=== PATIENT | female | born 1965 | race Caucasian/White ===

== ENCOUNTER 2024-06-19 08:10 | Outpatient (AMB) | payer BC, SELFPAY ==
--- NOTE | 2024-06-19 08:13 | MHC.OFFVIS ---
Vital Signs 06/19/24 08:28 Height 5 ft 2 in Weight 183 lb 13.848 oz BMI 33.6 BP 122/84 Blood Pressure Location Rt brachial Position Sitting Pulse 70 Pulse Source Pulse Oximeter Pulse Oximetry (%) 96 Oxygen Delivery Method Room Air Intake Visit Reasons: Gerd Intake Note: Relevant Flags or Indicators ? Requires Conservation Technician? N Patricia presents in office today for a scheduled initial consult for GERD. CC; Relevant records from [facility] printed and handed to MOTORIZED SQUAD SERGEANT for review. Relevant GI Sx as reported per pt? Nausea ? Vomiting (w/o bleeding, however, typically has a very metallic/bitter taste prior/post). ? Reflux -- Pt does report having respiratory affect w/ reflux. ? Early satiety ? Hx of any recent surgeries? None Pt reports prior hx of colo ~6 years ago. Pt denies any previous hx of EGD. Pt recently started omeprazole 20 mg BID which has been somewhat helpful. Conservation Technician Required: No Allergies No Known Allergies Allergy (Verified 06/19/24 08:13) HPI HPI Gerd: Details: 58-year-old female with no significant past medical history is here today for initial consultation. Patient reports that she has been dealing with epigastric pain, nausea and occasional vomiting. Patient reports that she has been dealing with acid reflux in the past few months. Placed on omeprazole twice a day by PCP and reports that her symptoms are somewhat better, however she continues to have acid reflux. Reports feeling metallic taste in her mouth before and after vomiting. Patient reports dyspepsia without dysphagia or odynophagia. Patient admits to be feeling full quickly. Last colonoscopy normal in 2019. Patient denies any diarrhea or constipation. Denies melena, hematochezia, unintentional weight loss or ribbon like stools. [facility] Medical History (Updated 07/06/24 @ 19:45 by Lashawn Sumner [facility] GERD (gastroesophageal reflux disease) Surgical History H/O colonoscopy (~2019) Family History Maternal Grandmother Ovarian cancer Paternal Grandmother Lung cancer Social History Alcohol intake: never Patient Tobacco Use Status: Former Tobacco user Tobacco use type: Cigarette Review of Systems Const Denies weight gain and Denies weight loss ENT Reports no additional complaints, Denies dysphagia and Denies odynophagia Card Reports no additional complaints Resp Reports no additional complaints GI Denies abdominal pain, Denies belching, Denies melena, Reports bloating, Denies change in bowel habits, Denies dysphagia, Denies excessive flatus, Denies dyspepsia, Reports heartburn, Denies diarrhea, Denies loose stools, Denies nausea, Denies odynophagia and Denies vomiting Reports no additional complaints Musc Reports no additional complaints Neuro Reports no additional complaints Psych Reports no additional complaints Endo Reports no additional complaints Physical Exam Vital Signs: Last Vital Signs Pulse 70 06/19/24 08:28 BP 122/84 06/19/24 08:28 Pulse Ox 96 06/19/24 08:28 Oxygen Delivery Method Room Air 06/19/24 08:28 BMI result Body Mass Index 33.6 Assessment & Plan Assessment & Plan (1) GERD (gastroesophageal reflux disease): Code(s): K21.9 - Gastro-esophageal reflux disease without esophagitis Category: Medical Qualifiers: Esophagitis presence: esophagitis presence not specified Qualified Code(s): K21.9 - Gastro-esophageal reflux disease without esophagitis (2) Postprandial epigastric pain: Code(s): R10.13 - Epigastric pain (3) Nausea & vomiting: Code(s): R11.2 - Nausea with vomiting, unspecified Qualifiers: Vomiting type: unspecified Qualified Code(s): R11.2 - Nausea with vomiting, unspecified (4) Postprandial abdominal bloating: Code(s): R14.0 - Abdominal distension (gaseous) Plan Patient will return for H pylori testing and will hold off taking PPI in the meantime. Will check transglutaminase to rule out celiac, lipase, vitamin B12, folate and vitamin-D level. Will send patient for upper GI series with barium swallow. Patient will be sent for upper endoscopy. Message sent to surgical schedulers to book one. Patient will be started on Nexium after H pylori testing and famotidine at bedtime. Patient can use Pepcid now twice a day until she comes back for H pylori testing. Patient is agreeable to current plan of care and verbalizes understanding of instructions. She was given the opportunity to ask questions and all questions answered. Thank you for allowing me to participate in her care Orders: Orders H Pylori Breath Test 06/19/24 K21.9 - Gastro-esophageal reflux disease without esophagitis Transglutaminase IgA 06/20/24 R10.9 - Unspecified abdominal pain Lipase 06/20/24 R10.9 - Unspecified abdominal pain Transglutaminase Ab IgG 06/20/24 R10.9 - Unspecified abdominal pain TSH reflex Free T4 06/20/24 K59.00 - Constipation, unspecified Vitamin B12 and Folate 06/20/24 R19.7 - Diarrhea, unspecified Vitamin D 25-OH (D2 and D3) 06/20/24 E55.9 - Vitamin D deficiency, unspecified FL upper GI w Ba Swallow 06/19/24 K21.9 - Gastro-esophageal reflux disease without esophagitis Medications: New famotidine (Pepcid) 20 mg PO BID 30 tabs 3RF K29.70 - Gastritis, unspecified, without bleeding esomeprazole magnesium (Nexium) 40 mg PO DAILY 30 caps 5RF K21.9 - Gastro-esophageal reflux disease without esophagitis Coding Level of Care Code New Pt Level 4 (55108) Diagnoses Gastroesophageal reflux disease, unspecified whether esophagitis present K21.9 Esophagitis presence: esophagitis presence not specified Postprandial epigastric pain R10.13 Nausea and vomiting, unspecified vomiting type R11.2 Vomiting type: unspecified Postprandial abdominal bloating R14.0 Time Spent (min) 45 Comment 30 minutes spent with patient and additional 15 minutes spent reviewing her records
[2024-06-19 08:28] VITALS: BP 122/84; PULSE 70; O2SAT 96; BMI 33.6
== END 2024-06-19 09:08 | disposition home or self-care (01) ==
LOC: HO.HGI 08:10
PROVIDERS: PCP Physician Assistant Medical; Visit Provider Nurse Practitioner Family
DX: K21.9 Gastro-esophageal reflux disease without esophagitis (principal); R10.13 Epigastric pain; R11.2 Nausea with vomiting, unspecified; R14.0 Abdominal distension (gaseous)
CPT/HCPCS: 99204

== ENCOUNTER → 2024-06-19 08:10 | Outpatient (BNVA) | payer BC, SELFPAY | PROVIDERS: PCP Physician Assistant Medical; Visit Provider Nurse Practitioner Family ==

== ENCOUNTER 2024-06-20 06:17 | Outpatient (REF) | payer BC, SELFPAY ==
[2024-06-20 07:54] LABS: Lipase 38 U/L (8-78)
[2024-06-20 08:14] LABS: TSH reflex Free T4 1.63 uIU/mL (0.32-4.0)
[2024-06-20 08:28] LABS: Folate 5.1 ng/mL (> or = 4.0); Vitamin B12 508 pg/mL (200-900)
[2024-06-21 19:44] LABS: Transglutaminase Ab IgG <1.0 U/mL; Transglutaminase IgA <1.0 U/mL
[2024-06-25 15:53] LABS: Vitamin D 25-OH, D2 <4 ng/mL; Vitamin D 25-OH, D3 24 ng/mL; Vitamin D 25-OH, Total 24 ng/mL (30-100)
== END 2024-06-20 06:18 | disposition home or self-care (01) ==
LOC: HO.LAB 06:17
PROVIDERS: PCP Physician Assistant Medical; Visit Provider Nurse Practitioner Family
DX: R10.9 Unspecified abdominal pain (principal); K59.00 Constipation, unspecified; R19.7 Diarrhea, unspecified; E55.9 Vitamin D deficiency, unspecified
CPT/HCPCS: 36415; 82306; 82607; 82746; 83690; 84443; 86364

== ENCOUNTER 2024-06-21 06:30 | Day surgery (SDC) | payer BC, SELFPAY ==
--- NOTE | 2024-06-20 10:36 | P.CONAN_ITS ---
Documented by User: Patricia Mcdonald NP 06/20/24 10:36 HPI - Anesthesia Eval Consult details Narrative: 58yo F for Upper Endoscopy [facility] Past Medical History Medical History GERD (gastroesophageal reflux disease) Family History Family History Maternal Grandmother Ovarian cancer Paternal Grandmother Lung cancer Surgical History Surgical History H/O colonoscopy (~2018) Social History Social History Alcohol intake: never Patient Tobacco Use Status: Former Tobacco user Tobacco use type: Cigarette Advance Directives: No Advance Directives Information Provided: Yes Meds Allergies Allergy/AdvReac Type Severity Reaction Status Date / Time No Known Allergies Allergy Verified 06/19/24 08:13 Home Medications ?Medication ?Instructions ?Recorded ?Confirmed ?Last Taken ?Type omeprazole 20 mg capsule,delayed 20 mg PO BID 06/19/24 Unknown History release Assessment and Plan Assessment Anesthesia Assessment: Chart Reviewed Documented by User: Stanislaw Hannah MD 06/21/24 08:14 [facility] Past Medical History Medical History GERD (gastroesophageal reflux disease) Family History Family History Maternal Grandmother Ovarian cancer Paternal Grandmother Lung cancer Family history of problems with anesthesia: No Surgical History Surgical History H/O colonoscopy (~2018) History of Problems with Anesthesia: No Social History Social History Alcohol intake: never Patient Tobacco Use Status: Former Tobacco user Tobacco use type: Cigarette Advance Directives: No Advance Directives Information Provided: Yes Meds Allergies Allergy/AdvReac Type Severity Reaction Status Date / Time No Known Allergies Allergy Verified 06/19/24 08:13 Home Medications ?Medication ?Instructions ?Recorded ?Confirmed ?Last Taken ?Type omeprazole 20 mg capsule,delayed 20 mg PO BID 06/19/24 Unknown History release Exam Airway Mallampati Class: II TM Dist: <=3cm Neck ROM: Full Loose/Missing/Broken Teeth: No Heart: ok Lungs: ok Assessment and Plan Assessment Anesthesia Assessment: Anesthesia Plan Discussed Final Anesthetic Review Family History of Problems with Anesthesia: No History of Problems with Anesthesia: No NPO: Yes ASA Class: II Final Preanesthetic Review: No Changes in Pt Med Stat, Meds/Allgs Chart Reviewed, Consent Obtained/Reviewed and Anes Risks/Benef Reviewed Patient Risk: Intermediate Procedure Risk: Intermediate Anesthetic Plan Anesthetic Plan: Agree w/ Assess. and Plan and TIVA Disposition: Standard PACU
[2024-06-21 06:36] VITALS: BMI 33.8
[2024-06-21 06:45] VITALS: BP 141/87; PULSE 60; RESP 16; TEMP 36.1; O2SAT 99
[2024-06-21] MEDS: Lactated Ringers 1,000 ML 100 ML IVCONT (06:48)
--- NOTE | 2024-06-21 08:12 | MHC.SHP ---
Pre-Procedural Eval Section A - 24 Hr Update-Section A only Date of Service: 06/21/24 Section B - Complete if H&P > 30 days Chief Complaint: Gastro-esophageal reflux disease without esophagit Relevant Family History (Specify if Yes): No Relevant Social History: None Present Medications: see Short Stay Collaborative assessment Medical History: Significant History (GERD (gastroesophageal reflux disease)) History of Previous Operations: Relevant previous surgery/procedure and date(s) (H/O colonoscopy (~2018)) Allergies: Allergies Allergy/AdvReac Type Severity Reaction Status Date / Time No Known Allergies Allergy Verified 06/19/24 08:13 Review of Systems Sugical H&P ROS: Negative: Constitution, Cardiovascular, Respiratory, Neurological, Psychiatric, Hem-Onc, Allergic/Immunologic, Gastrointestinal, Genitourinary, Musculoskeletal, Integumentary, Endocrine and Eyes/Ears/Nose/Throat Exam Surgical H&P Exam: Normal: HEENT, Normal: Heart, Normal: Lungs, Normal: Extremities, Normal: Abdomen, Normal: Skin and Normal: Neurological Plan Diagnosis/Plan: Unchanged I have reviewed the history and physical and performed a pertinent physical examination on my patient. No changes have occurred unless specified. Time Spent With Patient Time: Total time managing care of this patient today ____ minutes.
--- NOTE | 2024-06-21 08:26 | W.PM.OPN ---
Operative Note Operative Note Date of Service: 06/21/24 Narrative: Procedure Description: EGD Indication: GERD Anesthesia: MAC FLEXIBLE TRANSORAL UPPER GASTROINTESTINAL ENDOSCOPY UPPER ENDOSCOPY Consent: Indications for the procedure and potential complications of bleeding, perforation, reaction to medications and missed diagnosis were discussed with the patient and informed consent was obtained. Instrument: Olympus GIF H 190 J mid size upper endoscope Monitoring: Vital signs and clinical assessment, continuous EKG monitoring, Pulse oximetry, Carbon Dioxide monitoring and blood pressure monitoring were done throughout the procedure. Procedure: The patient was placed in the left lateral decubitis position and pre-procedure medications were administered and a bite block was placed. The endoscope was inserted into the mouth and advanced under direct vision to the third part of duodenum. A careful inspection was made as the upper endoscope was withdrawn including a retroflexed examination of the proximal stomach; Findings and interventions are described below. Findings: Larynx:normal Esophagus: GE junction at 36 cm, diaphragm hiatus at 39 cm, consistent with 3 cm sliding hiatal hernia, mild esophagitis noted-bx taken from GEJ-distal and proximal esophagus Stomach: tyrone erythema and scarring . Biopsies were obtained. Grade 2 flap valve on retroflexed examination of the cardia. Duodenum: Normal bulb and descending duodenum, Intervention: Biopsies as noted above, Impression/Findings: gastritis mild esophagitis hiatal hernia PLAN: if H pylori pos then treat GERD precautions
[2024-06-21 08:37] VITALS: BP 92/57; PULSE 73; RESP 18; TEMP 36.3; O2SAT 96
[2024-06-21 08:52] VITALS: BP 113/76; PULSE 70; RESP 16; TEMP 36.3; O2SAT 98
== END 2024-06-21 09:24 | disposition home or self-care (01) ==
PROVIDERS: PCP Physician Assistant Medical; Visit Provider Internal Medicine Gastroenterology
PROC: 0DJ08ZZ Inspection of Upper Intestinal Tract, Via Natural or Artificial Opening Endoscopic (ICD-10-PCS; CPT 43235; principal; 2024-06-21 08:20)
DX: K29.70 Gastritis, unspecified, without bleeding (principal); K20.90 Esophagitis, unspecified without bleeding; K44.9 Diaphragmatic hernia without obstruction or gangrene; K21.9 Gastro-esophageal reflux disease without esophagitis; K59.00 Constipation, unspecified; R19.7 Diarrhea, unspecified; E55.9 Vitamin D deficiency, unspecified; Z87.891 Personal history of nicotine dependence
CPT/HCPCS: 43239; 88305; 88313; 88342; J2003; J2704

== ENCOUNTER → 2024-06-21 06:30 | Outpatient (BNV) | payer BC, SELFPAY | PROVIDERS: PCP Physician Assistant Medical; Visit Provider Internal Medicine Gastroenterology | DX: K21.00 Gastro-esophageal reflux disease with esophagitis, without bleeding (principal); K29.70 Gastritis, unspecified, without bleeding | CPT/HCPCS: 43239 ==

== ENCOUNTER 2024-07-04 08:41 | Outpatient (AMB) | payer BC, SELFPAY ==
--- NOTE | 2024-07-04 08:58 | AM.OFFVISNUR ---
Intake Visit Reasons: H.pylori Breath test Allergies No Known Allergies Allergy (Verified 06/19/24 08:13) Nursing Note Patient presents for collection of?H?Pylori?breath test. Patient has been fasting for 1 hour (nothing to eat, drink, no chewing gum or smoking) has not taken any antacid medication for at least 2 weeks and has no allergies to artificial sweeteners.?? Assessment & Plan Assessment & Plan (1) GERD (gastroesophageal reflux disease): Code(s): K21.9 - Gastro-esophageal reflux disease without esophagitis Category: Medical Plan Patient presents for collection of?H?Pylori?breath test. Patient has been fasting for 1 hour (nothing to eat, drink, no chewing gum or smoking) has not taken any antacid medication for at least 2 weeks and has no allergies to artificial sweeteners.???This test checks for an overgrowth of bacteria in your stomach. We all have bacteria but some may have more than others. It is treatable. if the test comes back negative there is nothing else to do. If the test result is positive we will treat you with 2 antibiotics and a medication to decrease the acid in your stomach (PPI) for 2 weeks. Two weeks after you have completed the treatment we will retest you to make sure the overgrowth has resolved. Patient Instructions: Process for specimen collection and reason for testing was explained to the patient. Specimen collection. Patient instructed to take a deep breath and then exhale into the blue bag, filling it up as much as possible. Patient instructed to drink a mixture of water and the artificial sweetener with a straw. A 15 minute wait period was observed. Patient instructed to take a deep breath and then exhale into the pink bag, filling it up as much as possible.
== END 2024-07-04 09:11 | disposition home or self-care (01) ==
PROVIDERS: PCP Physician Assistant Medical; Visit Provider Nurse Practitioner Family
DX: K21.9 Gastro-esophageal reflux disease without esophagitis (principal)

== ENCOUNTER → 2024-07-04 08:41 | Outpatient (BNVA) | payer BC, SELFPAY | PROVIDERS: PCP Physician Assistant Medical; Visit Provider Nurse Practitioner Family | DX: Z11.0 Encounter for screening for intestinal infectious diseases (principal); K21.9 Gastro-esophageal reflux disease without esophagitis | CPT/HCPCS: 99211 ==

== ENCOUNTER 2024-07-04 16:25 | Outpatient (REF) | payer BC, SELFPAY ==
[2024-07-05 11:03] LABS: H Pylori Breath Test Negative (Negative)
== END 2024-07-04 16:26 | disposition home or self-care (01) ==
LOC: HO.LNP 16:25
PROVIDERS: Visit Provider Nurse Practitioner Family
DX: K21.9 Gastro-esophageal reflux disease without esophagitis (principal)
CPT/HCPCS: 83013

== ENCOUNTER 2024-09-06 09:38 | Outpatient (REF) | payer BC, SELFPAY ==
--- NOTE | ~2024-09-06 | FL_ITS ---
EXAMINATION: XR FLUOROSCOPY UPPER GI WITH AIR CLINICAL INFORMATION: Reflux. COMPARISON: None TECHNIQUE: Fluoroscopic air contrast upper GI examination was performed utilizing standard techniques with thin and thick barium and effervescent granules. Numerous spot images were obtained. FINDINGS: Dual and single contrast images of the esophagus demonstrate normal caliber, contour, and mucosal pattern. There is mild cricopharyngeal achalasia present. No evidence of stricture, mass, or ulcerations identified. Esophageal peristalsis was normal. A small type I hiatal hernia is present. Significant gastroesophageal reflux is seen up to the thoracic inlet. Dual contrast and single contrast images of the stomach demonstrated normal contour. The gastric rugal folds have a thickened appearance, suggestive of gastritis. No masses or ulcerations are seen. Contrast freely passed into the gastric antrum and duodenal bulb without delay. Single and air-contrast images of the duodenal bulb demonstrate no abnormality. The duodenal sweep has a normal appearance, course, and mucosal fold appearance. The imaged proximal jejunum has a normal fold pattern and caliber. FLUOROSCOPY TIME: 4.0 minutes Number of Spot Images: 13 Number of Cine: 13 DOSE AREA PRODUCT: 2154 uGy-m2 (microgray-meter squared) FL/FL upper GI w Ba Swallow IMPRESSION: 1. Mild cricopharyngeal achalasia. 2. Small type I hiatal hernia with severe gastroesophageal reflux. 3. Thickened appearance the gastric rugal folds, suggestive of gastritis. This procedure was performed by Bubba Jane PA-C, and supervised by Dr. Corral Electronically signed by: Miguel Corral MD 09/11/2024 02:47 PM [facility]
== END 2024-09-06 09:39 | disposition home or self-care (01) ==
LOC: HO.XRAY 09:38
PROVIDERS: PCP Physician Assistant Medical; Visit Provider Nurse Practitioner Family
DX: K21.9 Gastro-esophageal reflux disease without esophagitis (principal)
CPT/HCPCS: 74240

== ENCOUNTER → 2024-09-06 09:40 | Outpatient (BNV) | payer BC, SELFPAY | PROVIDERS: PCP Physician Assistant Medical; Visit Provider Physician Assistant Surgical | DX: K21.9 Gastro-esophageal reflux disease without esophagitis (principal) | CPT/HCPCS: 74246 ==

== ENCOUNTER 2024-10-02 10:54 | Outpatient (AMB) | payer BC, SELFPAY ==
--- NOTE | 2024-10-02 11:01 | MHC.OFFVIS ---
Vital Signs 10/02/24 11:02 Height 5 ft 2 in Weight 190 lb 7.67 oz BMI 34.8 BP 116/56 L Blood Pressure Location Rt brachial Position Sitting Pulse 84 Pulse Source Pulse Oximeter Pulse Oximetry (%) 96 Oxygen Delivery Method Room Air Intake Visit Reasons: follow up EGD Intake Note: ESTABLISHED PATIENT for s/p FUV + mgmt of GERD. Imaging and labs done. Chief Complaint; Pt reports chronic constipation + diarrhea, no change in presentation since last visit, failure to evacuate bowels fully. Pt reports new onset of LLQ pain which they saw their PCP for. Pt started on fiber per PCP which has seemingly helped to relieve the pain. No change in BM. No additional concerns at this time. GERD well controlled. Melter Loader Required: No Accompanied by: Self / Same As Patient Allergies No Known Allergies Allergy (Verified 10/02/24 11:01) HPI HPI follow up EGD: Details: LAST VISIT GERD (gastroesophageal reflux disease) Postprandial epigastric pain Nausea & vomiting Postprandial abdominal bloating Plan Patient will return for H pylori testing and will hold off taking PPI in the meantime. Will check transglutaminase to rule out celiac, lipase, vitamin B12, folate and vitamin-D level. Will send patient for upper GI series with barium swallow. Patient will be sent for upper endoscopy. Message sent to surgical schedulers to book one. Patient will be started on Nexium after H pylori testing and famotidine at bedtime. Patient can use Pepcid now twice a day until she comes back for H pylori testing. Patient is agreeable to current plan of care and verbalizes understanding of instructions. She was given the opportunity to ask questions and all questions answered. ? Thank you for allowing me to participate in her care Orders Orders H Pylori Breath Test 06/19/24 K21.9 Transglutaminase IgA 06/20/24 R10.9 Lipase 06/20/24 R10.9 Transglutaminase Ab IgG 06/20/24 R10.9 TSH reflex Free T4 06/20/24 K59.00 Vitamin B12 and Folate 06/20/24 R19.7 Vitamin D 25-OH (D2 and D3) 06/20/24 E55.9 FL upper GI w Ba Swallow 06/19/24 K21.9 Medications New famotidine (Pepcid) 20 mg PO BID 30 tabs 3RF K29.70 esomeprazole magnesium (Nexium) 40 mg PO DAILY 30 caps 5RF K21.9 UPPER ENDOSCOPY Findings: Larynx:normal Esophagus: GE junction at 36 cm, diaphragm hiatus at 39 cm, consistent with 3 cm sliding hiatal hernia, mild esophagitis noted-bx taken from GEJ-distal and proximal esophagus Stomach: tyrone erythema and scarring . Biopsies were obtained. Grade 2 flap valve on retroflexed examination of the cardia. Duodenum: Normal bulb and descending duodenum, Intervention: Biopsies as noted above, Impression/Findings: gastritis mild esophagitis hiatal hernia PLAN: if H pylori pos then treat GERD precautions PATHOLOGY RESULTS: ADDENDUM REPORT Addendum Addendum #1 Immunostain for H. pylori on A is negative. Additional level with AB/PAS on B is negative for intestinal metaplasia. Controls stain appropriately. Electronically Signed By: Cheli Melvin 06/25/24 4739 Diagnosis A. Stomach, biopsy: Gastric antral and body mucosa with minimal chronic inactive gastritis; negative for intestinal metaplasia and dysplasia. B. Gastroesophageal junction, biopsy: Squamocolumnar mucosa with mild chronic inflammation; no intestinal metaplasia seen on initial levels; negative for dysplasia. C. Esophagus, distal, biopsy: Squamous mucosa with no specific change; no columnar mucosa present. D. Esophagus, proximal, biopsy: Squamous mucosa with no specific change; no columnar mucosa present. Comment: (A): Immunostain for H. pylori pending; addendum to follow. (B): Additional level with AB/PAS stain pending; addendum to follow. TODAY'S VISIT Patient is here today for follow-up and to discuss upper endoscopy results. Patient had no H pylori, no intestinal dysplasia seen mild chronic inflammation seen in her stomach. No Barretts. Patient reports that she started taking Nexium and is doing much better. Patient is not taking famotidine. 3 cm sliding hiatal hernia identified. Patient does report epigastric pain when bending. Symptoms of acid reflux have improved significantly. Left lower quadrant pain and postprandial diarrhea. Patient was recommended to start taking fiber supplement. Patient reports that she started taking only few days ago. She did not notice change in her bowel consistency. Patient reports that she is trying to avoid dietary triggers. Denies any nausea or vomiting. Denies melena, hematochezia. Denies dyspepsia, dysphagia or odynophagia. [facility] Medical History (Updated 10/02/24 @ 19:53 by Lashawn Sumner [facility]) Sliding hiatal hernia GERD (gastroesophageal reflux disease) Surgical History H/O colonoscopy (~2019) Family History Maternal Grandmother Ovarian cancer Paternal Grandmother Lung cancer Social History Alcohol intake: never Patient Tobacco Use Status: Former Tobacco user Tobacco use type: Cigarette Review of Systems Const Denies weight gain and Denies weight loss ENT Reports no additional complaints, Denies dysphagia and Denies odynophagia Card Reports no additional complaints Resp Reports no additional complaints GI Denies abdominal pain, Denies belching, Denies melena, Denies bloating, Denies change in bowel habits, Reports tenesmus (Improving with fiber), Reports constipation, Denies dysphagia, Denies excessive flatus, Denies dyspepsia, Reports heartburn, Denies diarrhea, Denies loose stools, Denies nausea, Denies odynophagia and Denies vomiting Reports no additional complaints Musc Reports no additional complaints Neuro Reports no additional complaints Psych Reports no additional complaints Endo Reports no additional complaints Physical Exam Vital Signs: Last Vital Signs Pulse 84 10/02/24 11:02 BP 116/56 L 10/02/24 11:02 Pulse Ox 96 10/02/24 11:02 Oxygen Delivery Method Room Air 10/02/24 11:02 BMI result Body Mass Index 34.8 Assessment & Plan Assessment & Plan (1) GERD (gastroesophageal reflux disease): Code(s): K21.9 - Gastro-esophageal reflux disease without esophagitis Category: Medical Qualifiers: Esophagitis presence: esophagitis presence not specified Qualified Code(s): K21.9 - Gastro-esophageal reflux disease without esophagitis (2) Sliding hiatal hernia: Code(s): K44.9 - Diaphragmatic hernia without obstruction or gangrene Category: Medical (3) LLQ abdominal pain: Code(s): R10.32 - Left lower quadrant pain (4) Postprandial diarrhea: Code(s): K52.9 - Noninfective gastroenteritis and colitis, unspecified Plan Patient was encouraged to increase fiber intake as well as take fiber supplement. Patient will take senna to help her eliminate her bowels better. 1-2 tablets daily continue Nexium. Avoid dietary triggers and late night snacking. Staying upright for minimum 3 hours after meals discussed with patient. Patient was diagnosed with 3 cm sliding hiatal hernia. Reports to have pain in her epigastric area when he bends occasionally. Patient was encouraged to watch this. Will call us if her symptoms will get worse. Patient might be a candidate for hiatal hernia repair in the future. Follow-up in the office in 6 months, sooner on as needed basis. Patient is agreeable to this plan and verbalizes understanding of instructions. She was given the opportunity to ask questions and all questions answered. Thank you for allowing me to participate in her care Medications: New sennosides (Natural Senna Laxative) 8.6 mg PO BEDTIME 90 tabs 3RF constipation K59.00 - Constipation, unspecified Refilled esomeprazole magnesium (Nexium) 40 mg PO DAILY 90 caps 2RF K21.9 - Gastro-esophageal reflux disease without esophagitis Discontinued famotidine (Pepcid) Discontinued Reason: Doctor's Order 20 mg PO BID 30 tabs 3RF K29.70 - Gastritis, unspecified, without bleeding Coding Level of Care Code Est Pt Level 4 (66876) Complex EM visit Add On G2211 Diagnoses Gastroesophageal reflux disease, unspecified whether esophagitis present K21.9 Esophagitis presence: esophagitis presence not specified Sliding hiatal hernia K44.9 LLQ abdominal pain R10.32 Postprandial diarrhea K52.9 Time Spent (min) 35 Comment 20 minutes spent with patient and additional 15 minutes spent reviewing her records
[2024-10-02 11:02] VITALS: BP 116/56; PULSE 84; O2SAT 96; BMI 34.8
== END 2024-10-02 11:35 | disposition home or self-care (01) ==
PROVIDERS: PCP Physician Assistant Medical; Visit Provider Nurse Practitioner Family
DX: K21.9 Gastro-esophageal reflux disease without esophagitis (principal); K44.9 Diaphragmatic hernia without obstruction or gangrene; R10.32 Left lower quadrant pain; K52.9 Noninfective gastroenteritis and colitis, unspecified
CPT/HCPCS: 99214

== ENCOUNTER → 2024-10-02 10:54 | Outpatient (BNVA) | payer BC, SELFPAY | PROVIDERS: PCP Physician Assistant Medical; Visit Provider Nurse Practitioner Family ==

== ENCOUNTER 2025-04-01 08:01 | Outpatient (AMB) | payer BC, SELFPAY ==
--- OUTSIDE RECORDS SUMMARY | 2025-04-01 08:05 | XMS_ITS ---
Author Name [facility] Organization Unknown Care Team Organization Name Specialty Phone Email Start Date End Da te [facility] Karen Cueva [facility] 06/29/2022 4
--- OUTSIDE RECORDS SUMMARY | 2025-04-01 08:06 | XMS_ITS | Clinical Summary ---
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 08/21/2019 Varicose veins of both lower extremities 019 Immunizations Name Administration Dates Next Due Vessix SARS-CoV-2 COVID-19, mRNA, LNP-S, preservative free 10/10/2020,09/19/2020 Tdap Tetanus diptheria acell ular pertussis (Boostrix; Adacel) 7yo and older 10/25/2020,04/28/2017,08/22/2012 Surgical History Surgery Date Site/Laterality Comments OTHER SURGICAL HISTORY 2016 PROCEDURE: NC STAB PHLEBT VARICOSE VEINS 1 XTR > 20 INCS COLONOSCOPY PROCEDURE: HISTORICAL COLONOSCOPY; COMMENT: 2019 Medical History Medical History Date Comments Plantar fasciitis DX:Plantar fas ciitis Varicose veins of both lower extremities DX:Varicose veins of both lower extremities GERD (gastroesophageal reflux disease) DX:GERD (gastroesophageal reflux disease) Atypical chest pain DX:Atypical chest pain Swallowing difficulty DX:Swallow ing difficulty Family History Medical History Relation Name Comments Other: skin cancer Father Other: Ovarian Cancer Maternal Grandmother COPD Mother HTN, Macular De generation Heart attack Paternal Grandfather Bipolar disorder Sister Other: Cerebral Palsy Son Relation Name Status Comments Father Alive Maternal Grandfather Maternal Grandmother Mother Paternal Grandfather Paternal Grandmother Sister Alive Son Alive Social History Tobacco Use Types Packs/Day Years Used Date Smoking Tobacco: Former Cigarettes Smokeless Tobacco: Never Alcohol Use Standard Drinks/Week Comments Yes 0 (1 standard drink = 0.6 oz pur e alcohol) Comments Unknown Sex and Gender Information Value Date Recorded Sex Assigned at Not on file Legal Sex Female 6:51 AM EST Gender Identity Not on file Sexual Orientation Not on file Obstetrics History Last Filed Vital Signs Vital Sign Reading Time Taken Comments Blood Pressure 110/60 12/09/2021 11:11 AM EDT Pulse 78 12/09/2021 11:11 AM EDT Temperature - - Respiratory Rate - - Oxygen Saturation - - Inhaled Oxygen Concentration - - Weight 83 kg (183 lb) 12/09/2021 11:11 AM EDT Height 157.5 cm (5' 2 ) 12/09/2021 11:11 AM EDT Body Mass Index 33.47 12/09/2021 11:11 AM EDT Plan of Treatment Health Maintenance Due Date Last Done Comments Hepatitis B Vaccines (1 of 3 - 19+ 3-dose series) 1985 Zoster Vaccines (1 of 2) 1985 Pneumococcal Vaccine: 50+ Years (1 of 1 - PCV) 2016 COVID-19 Vaccine (3 - Pfizer risk series) 11/07/2020 10/10/2020, 09/19/2020 HIV Screening 07/31/2022 Hepatitis C Screening 07/31/2022 Social Influencers of Health Screening 07/31/2022 Breast Cancer Screening 12/31/2023 12/31/19 22, 12/24/2020, 10/14/2019, Additional history exists Cervical Cancer Screening: HPV 06/13/2024 06/13/2019 Depression Screening 08/22/2024 Influenza Vaccine (#1) 2025 Colorectal Cancer Screening: Colonoscopy 12/18/2028 12/18/2018 DTaP,Tdap,and Td Vaccines (4 - Td or Tdap) 10/25/2030 10/25/2020, 04/28/2017, 08/22/2012 HIB Vaccines Aged Out No longer eligi ble based on patient's age to complete this topic HPV Vaccines Aged Out No longer eligi ble based on patient's age to complete this topic Hepatitis A Vaccines Aged Out No long er eligible based on patient's age to complete this topic IPV Vaccines Aged Out No longer eligi ble based on patient's age to complete this topic MMR Vaccines Aged Out No longer eligi ble based on patient's age to complete this topic Meningococcal ACWY Vaccine Aged Out N o longer eligible based on patient's age to complete this topic Meningococcal B Vaccine Aged Out No l onger eligible based on patient's age to complete this topic RSV Immunization Patients Under 20 months Aged Out No longer eligible based on patient's age to complete this topic Varicella Vaccines Aged Out No longer eligible based on patient's age to complete this topic Procedures Procedure Name Priority Date/Time Associated Diagnosis Comments [facility] SCREENING DIGITAL Routine 12/30/2021 3:02 PM EDT Encounter for screening mammogram for malignant neoplasm of breast HPV Routine 06/13/2019 COLONOSCOPY Routine 12/18/2018 from Last 3 Months or Most Recently Relevant to Health Maintenance Results * GERARDO SCREENING DIGITAL (12/30/2021 3:02 PM EDT) Anatomical Region Laterality Modality Mammography 12/30/2021 1:36 PM EDT Narrative 12/30/2021 3:02 PM EDT [facility] Diagnostic Imaging Department [address] [place], [place] [id number] Patient: PATRICIA FERGUSON EDUARD /Age/Sex: 1965 - 56 - F Unit#: [id number] Location/Status: [facility]REG CLI Mnemonic/Ordering Site: [facility] Ordering Physician: GUILLE CUEVA MD Gerardo Screening Digital - 12/30/21 - 3023 INDICATION: SCREENING COMPARISON: [facility] mammograms dating back to 08/07/2014 TECHNIQUE: CC and MLO views of the breasts were obtained, using full field digital mammography with 3D tomosynthesis views in the MLO projection. Computer aided detection with the NetConstat 7.2-H was employed. FINDINGS: The breasts contain scattered fibroglandular tissues. No suspicious masses, suspicious microcalcifications, or areas of architectural distortion are identified. There are no secondary signs of breast malignancy. IMPRESSION: No specific mammographic evidence of breast malignancy. Lack of an imaging correlate should not deter or delay biopsy of a clinically significant palpable finding. BI-RADS - Category 1: Negative 3341F, 7025F Annual screening mammography is recommended. Patient entered into a reminder system with a target date for the next mammogram. G0202 / [id number] , [id number] Dictating Physician: KERI MORRISON MD Electronically Signed by: KERI MORRISON MD Dic Date/Time: 12/30/21 1459 Sign date/Time: 12/30/21 1505 Procedure Note Keri Morrison MD - 08/11/2022 [facility] Diagnostic Imaging Department [address] [place] [id number] Patient: PATRICIA FERGUSON EDUARD /Age/Sex: 1965 - 56 - F Unit#: [id number] Location/Status: SPD[facility]AM/REG CLI Mnemonic/Ordering Site: [facility] Ordering Physician: GUILLE CUEVA MD Gerardo Screening Digital - 12/30/21 - 1353 INDICATION: SCREENING COMPARISON: [facility] mammograms dating back to 08/07/2014 TECHNIQUE: CC and MLO views of the breasts were obtained, using full field digital mammography with 3D tomosynthesis views in the MLO projection. Computer aided detection with the NetConstat 7.2-H was employed. FINDINGS: The breasts contain scattered fibroglandular tissues. No suspicious masses, suspicious microcalcifications, or areas ofarchitectural distortion are identified. There are no secondary signs of breastmalignancy. IMPRESSION: No specific mammographic evidence of breast malignancy. Lack of an imaging correlate should not deter or delay biopsy of aclinically significant palpable finding. BI-RADS - Category 1: Negative 3341F, 7025F Annual screening mammography is recommended. Patient entered into a reminder system with a target date for the next mammogram. (G0202 / [id number]) , [id number] Dictating Physician: KERI MORRISON MD Electronically Signed by: KERI MORRISON MD Dic Date/Time: 12/30/21 1451 Sign date/Time: 12/30/21 1500 Guille Cueva MD IMG BI PROCEDURES Final Result * Cervical Cancer Screening: HPV (06/13/2019) Cervical Cancer Screening: HPV negative, abstracted Historical Provider HEALTH MAINTENANCE Final Result * Colonoscopy (12/18/2018) Colonoscopy no interpretation , abstracted Anatomical Region Laterality Modality Other Historical Provider HEALTH MAINTENANCE Final Result from Last 3 Months or Most Recently Relevant to Health Maintenance Care Teams Bottomer Operator Relationship Specialty Start Date End Date Guille Cueva MD [address] [place] [address] PCP - General Internal Medicine 07/01/21
--- NOTE | 2025-04-01 08:09 | MHC.OFFVIS ---
Vital Signs 04/01/25 08:12 Height 5 ft 2 in Weight 187 lb BMI 34.2 BP 136/76 Blood Pressure Location Rt brachial Position Sitting Pulse 76 Pulse Source Pulse Oximeter Pulse Oximetry (%) 96 Oxygen Delivery Method Room Air Intake Visit Reasons: 6 MO F/U Intake Note: ESTABLISHED PATIENT for mgmt of GERD. Chief Complaint; Pt would like to discuss senna and potential alternatives. Pt feels that it did not work well for her. Pt does feel that the PPI works well however. Doctor'S Assistant Required: No Accompanied by: Self / Same As Patient Allergies No Known Allergies Allergy (Verified 10/02/24 11:01) HPI HPI 6 MO F/U: Details: LAST VISIT: GERD (gastroesophageal reflux disease) Sliding hiatal hernia LLQ abdominal pain Postprandial diarrhea Plan Patient was encouraged to increase fiber intake as well as take fiber supplement. Patient will take senna to help her eliminate her bowels better. 1-2 tablets daily continue Nexium. Avoid dietary triggers and late night snacking. Staying upright for minimum 3 hours after meals discussed with patient. Patient was diagnosed with 3 cm sliding hiatal hernia. Reports to have pain in her epigastric area when he bends occasionally. Patient was encouraged to watch this. Will call us if her symptoms will get worse. Patient might be a candidate for hiatal hernia repair in the future. Follow-up in the office in 6 months, sooner on as needed basis. Patient is agreeable to this plan and verbalizes understanding of instructions. She was given the opportunity to ask questions and all questions answered. ? Thank you for allowing me to participate in her care New sennosides (Natural Senna Laxative) 8.6 mg PO BEDTIME 90 tabs 3RF constipation K59.00 Refilled esomeprazole magnesium (Nexium) 40 mg PO DAILY 90 caps 2RF K21.9 Discontinued famotidine (Pepcid) Discontinued Reason: Doctor's Order 20 mg PO BID 30 tabs 3RF K29.70 TODAY'S VISIT Patient is here today for follow-up. Patient reports that she has been doing fairly well. Acid reflux suppressed with Nexium. Patient also is trying to avoid dietary triggers. Patient denies dyspepsia, dysphagia or odynophagia. Reports to have a good appetite. Patient reports constipation and reports that she has been drinking plenty fluids. Patient denies melena, hematochezia, unintentional weight loss or ribbon like stools. Patient denies any other GI concerning symptoms. [facility] Medical History Sliding hiatal hernia GERD (gastroesophageal reflux disease) Surgical History H/O colonoscopy (~2018) Family History Maternal Grandmother Ovarian cancer Paternal Grandmother Lung cancer Social History Alcohol intake: never Patient Tobacco Use Status: Former Tobacco user Tobacco use type: Cigarette Review of Systems Const Denies weight gain and Denies weight loss ENT Reports no additional complaints, Denies dysphagia and Denies odynophagia Card Reports no additional complaints Resp Reports no additional complaints GI Denies abdominal pain, Denies belching, Denies melena, Denies bloating, Denies change in bowel habits, Reports tenesmus (Improving with fiber), Reports constipation, Denies dysphagia, Denies excessive flatus, Denies dyspepsia, Reports heartburn, Denies diarrhea, Denies loose stools, Denies nausea, Denies odynophagia and Denies vomiting Reports no additional complaints Musc Reports no additional complaints Neuro Reports no additional complaints Psych Reports no additional complaints Endo Reports no additional complaints Physical Exam Vital Signs: Last Vital Signs Pulse 76 04/01/25 08:12 BP 136/76 04/01/25 08:12 Pulse Ox 96 04/01/25 08:12 Oxygen Delivery Method Room Air 04/01/25 08:12 BMI result Body Mass Index 34.2 Const General: healthy appearing, no acute distress and well developed Nutritional Appearance: well nourished and obese Orientation/consciousness: patient oriented x3 Resp Effort & Inspection: normal respiratory effort, able to speak in complete sentences, no tracheal deviation and symmetric chest movement Auscultation: clear to auscultation bilaterally Cardio Rate: regular rate GI Inspection: Yes normal to inspection, No distended and Yes obesity Palpation (GI): Soft to palpation, not firm, nontender and No hepatosplenomegaly present Auscultation: normal bowel sounds General: Yes no CVA tenderness Back/Spine/Pelvis Back: no CVA tenderness Skin General skin exam: elasticity normal, turgor normal and dry skin Neuro General: patient oriented x3 Psych Appearance: grossly normal Mental Status: mental status grossly normal Assessment & Plan Assessment & Plan (1) GERD (gastroesophageal reflux disease): Code(s): K21.9 - Gastro-esophageal reflux disease without esophagitis Category: Medical Qualifiers: Esophagitis presence: esophagitis presence not specified Qualified Code(s): K21.9 - Gastro-esophageal reflux disease without esophagitis (2) Constipation: Code(s): K59.00 - Constipation, unspecified Qualifiers: Constipation type: slow transit constipation Qualified Code(s): K59.01 - Slow transit constipation Plan Patient will continue taking Nexium daily. Avoid dietary triggers in late night snacking. Staying upright for minimum 3 hours after meals discussed with patient. Increase fluid intake, fiber, activity to promote better bowel motility. Patient can take [id number] fiber supplement with pre and probiotics. Follow-up in the office in 6 months, sooner on as needed basis. She is agreeable to this plan and verbalizes understanding of instructions. She was given the opportunity to ask questions and all questions answered. Thank you for allowing me to participate in her care Coding Level of Care Code Est Pt Level 3 (50354) Diagnoses Gastroesophageal reflux disease, unspecified whether esophagitis present K21.9 Esophagitis presence: esophagitis presence not specified Slow transit constipation K59.01 Constipation type: slow transit constipation Time Spent (min) 25 Comment 15 minutes spent with patient and additional 10 minutes spent reviewing her records
[2025-04-01 08:12] VITALS: BP 136/76; PULSE 76; O2SAT 96; BMI 34.2
== END 2025-04-01 08:36 | disposition home or self-care (01) ==
LOC: HO.HGI 08:01
PROVIDERS: PCP Physician Assistant Medical; Visit Provider Nurse Practitioner Family
DX: K21.9 Gastro-esophageal reflux disease without esophagitis (principal); K59.01 Slow transit constipation
CPT/HCPCS: 99213